=== PATIENT | female | born 2000 | race American Indian/Alaskan Native ===

== ENCOUNTER 2021-07-30 09:55 | Emergency (ER) | payer SELFPAY ==
[2021-07-30 10:48] LABS: HCG Qualitative,Urine Negative (Negative)
[2021-07-30 11:40] LABS: Bilirubin,Urine NEG (Negative); Blood,Urine LG (Negative); Color,Urine Red (Yellow)
[2021-07-30 11:48] LABS: RBC,Urine > 182.0 /HPF (0.0-6.0)
[2021-07-30] MEDS ORDERED: LIDOCAINE-MPF (1%) 10 MG/1 ML VIAL 5 ML INFILTRATI ONE (13:14)
--- NOTE | 2021-07-30 13:20 | Emergency Department Report ---
ED Female HPI - General Chief complaint: Abdominal Pain Stated complaint: ABDOMINAL/BACK PAIN Time Seen by Provider: 07/30/21 11:29 Source: patient Mode of arrival: Ambulatory Limitations: No Limitations - History of Present Illness Initial comments: 20-year-old black female with a past medical history of gallstones presents to the emergency department for evaluation of 3 to 4-day history of abdominal pain, lower back pain, vaginal discharge. She states that vaginal discharge is off yellow colored, malodorous, and different than her usual discharge. She denies any dysuria or fever. She admits to having a she states that pain is 5 out of 10. MD Complaint: vaginal discharge -: Gradual, days(s) (3-4) Location: LLQ, RLQ Radiation: non-radiating Severity: moderate Severity scale (0 -10): 5 Quality: aching Consistency: intermittent Are you Now?: No Associated Symptoms: vaginal discharge, abdominal pain. denies: vaginal bleeding, nausea/vomiting, fever/chills, headaches, loss of appetite, dysuria, hematuria, rash, seizure, shortness of breath, syncope, weakness - Related Data Sexually active: Yes Previous Rx's Medication Instructions Recorded Last Taken Type DOXYCYCLINE Hyclate [Vibramycin] 100 mg PO Q12HR 7 Days #14 capsule 07/30/21 Unknown Rx metroNIDAZOLE [Flagyl] 500 mg PO Q12HR 7 Days #14 tab 07/30/21 Unknown Rx Allergies Allergy/AdvReac Type Severity Reaction Status Date / Time No Known Allergies Allergy Verified 07/30/21 11:44 ED Review of Systems ROS: Stated complaint: ABDOMINAL/BACK PAIN Other details as noted in HPI Comment: All other systems reviewed and negative Constitutional: denies: chills, fever Respiratory: denies: cough, shortness of breath, SOB with exertion, SOB at rest Cardiovascular: denies: chest pain, palpitations, dyspnea on exertion Gastrointestinal: denies: abdominal pain, nausea, vomiting, diarrhea, hematemesis, melena Genitourinary: discharge. denies: urgency, dysuria, frequency, hematuria Musculoskeletal: denies: back pain Neurological: denies: headache, weakness ED Past Medical Hx - Past Medical History Previous Medical History?: Yes Additional medical history: gallstones - Surgical History Past Surgical History?: Yes Additional Surgical History: tonsilectomy - Medications Home Medications: Home Medications Medication Instructions Recorded Confirmed Last Taken Type DOXYCYCLINE Hyclate [Vibramycin] 100 mg PO Q12HR 7 Days #14 capsule 07/30/21 Unknown Rx metroNIDAZOLE [Flagyl] 500 mg PO Q12HR 7 Days #14 tab 07/30/21 Unknown Rx ED Physical Exam - General Limitations: No Limitations General appearance: alert, in no apparent distress - Head Head exam: Present: atraumatic, normocephalic - Eye Eye exam: Present: normal appearance. Absent: conjunctival injection - Neck Neck exam: Present: normal inspection. Absent: tenderness, full ROM, lymphadenopathy - Respiratory Respiratory exam: Absent: respiratory distress, chest wall tenderness - Cardiovascular Cardiovascular Exam: Present: regular rate - GI/Abdominal GI/Abdominal exam: Present: soft. Absent: distended - External exam: Present: other (Patient deferred and did self swab) - Extremities Exam Extremities exam: Present: normal inspection - Back Exam Back exam: Present: normal inspection. Absent: CVA tenderness (R), CVA tenderness (L) - Neurological Exam Neurological exam: Present: alert, oriented X3 - Psychiatric Psychiatric exam: Present: normal affect, normal mood, depressed - Skin Skin exam: Present: warm, dry, intact, normal color ED Course Vital Signs 07/30/21 13:40 Temperature 97.9 F Pulse Rate 82 Respiratory 16 Rate Blood Pressure 136/88 [Left] O2 Sat by Pulse 100 Oximetry ED Medical Decision Making - Medical Decision Making 20-year-old black female with a past medical history of gallstones presents to the emergency department for evaluation of 3 to 4-day history of abdominal pain, lower back pain, vaginal discharge. She states that vaginal discharge is off yellow colored, malodorous, and different than her usual discharge. She denies any dysuria or fever. She admits to having a she states that pain is 5 out of 10. Urine negative for urinary tract infection and . Wet prep positive for trichomonas. Sample sent for chlamydia testing, and patient has decided to be treated prophylactically. Patient will be given Rocephin 500 mg IM x1 in the emergency department and discharged home with 7-day course of Flagyl 500 mg twice daily along with doxycycline 100 mg twice daily. She is advised to take medications as prescribed, practice safe sex, have partner tested and treated, and follow-up with OB or primary care provider if no improvement or worsening symptoms. She verbalized understanding of and agreement with plan of care. Critical care attestation.: If time is entered above; I have spent that time in minutes in the direct care of this critically ill patient, excluding procedure time. ED Disposition Clinical Impression: Trichomonas vaginalis (TV) infection Disposition: HOME / SELF CARE / HOMELESS Is pt being admited?: No Does the pt Need Aspirin: No Condition: Stable Instructions: Trichomoniasis, Abdominal Pain (ED) Additional Instructions: Take medications as prescribed. Practice safe sex. Follow-up with primary care provider if no improvement or worsening symptoms. Return to the emergency department as needed. Prescriptions: metroNIDAZOLE [Flagyl] 500 mg PO Q12HR 7 Days #14 tab DOXYCYCLINE Hyclate [Vibramycin] 100 mg PO Q12HR 7 Days #14 capsule Referrals: AMAN STEWART MD [Staff Physician] - 3-5 Days [facility] [Outside] - 3-5 Days [facility] [Outside] - 3-5 Days Time of Disposition: 13:19
[2021-07-30 13:41] VITALS: BP 136/88
== END 2021-07-30 13:43 | disposition home or self-care (01) ==
LOC: ED 09:55
DX: A59.00 Urogenital trichomoniasis, unspecified (principal); Z90.89 Acquired absence of other organs; Z79.899 Other long term (current) drug therapy
CPT/HCPCS: 81001; 81025; 87086; 87210; 87591; 96372; 99283; J0696; J3490